=== PATIENT | female | born 1960 | race Caucasian/White ===

== ENCOUNTER 2017-08-29 09:48 | Day surgery (SDC) | payer OTHER ==
[~2017-08-29] VITALS: Ht 160 cm; Wt 82.6 kg
[~2017-08-29 09:48] MED LIST: ALBU90OI; AMLO5; ASPI81CH PO; CAND16; CLIN300 PO; CLOP75 PO; CODACE30; Hydrochloroth12.5 MG PO; LORA2 PO; LOSARTAN-HCTZ1 EAC2; NAPR500 PO; NICO14TP TOP; OXYACE5T PO; Omeprazole20 M1; PAXIL; PROACE100; TRAM50 PO; TRAZ100; [UNRECOGNIZED DRUG - OTHER]
== END 2017-08-29 12:03 | disposition home or self-care (01) ==
LOC: ORSCSDS 09:48
PROVIDERS: Internal Medicine Gastroenterology
PROC: 0DBE8ZX Excision of Large Intestine, Via Natural or Artificial Opening Endoscopic, Diagnostic (ICD-10-PCS; principal; 2017-08-29 11:00)
DX: R19.7 Diarrhea, unspecified (principal); K52.832 Lymphocytic colitis; K64.8 Other hemorrhoids; K57.30 Diverticulosis of large intestine without perforation or abscess without bleeding; R10.9 Unspecified abdominal pain; G47.33 Obstructive sleep apnea (adult) (pediatric); I10 Essential (primary) hypertension; F41.8 Other specified anxiety disorders; M79.7 Fibromyalgia; Z86.73 Personal history of transient ischemic attack (TIA), and cerebral infarction without residual deficits; F17.210 Nicotine dependence, cigarettes, uncomplicated; Z79.01 Long term (current) use of anticoagulants; Z79.82 Long term (current) use of aspirin; Z79.899 Other long term (current) drug therapy
CPT/HCPCS: 88305; J7120

== ENCOUNTER → 2018-11-20 | Outpatient (CLI) | payer OTHER ==
[~2018-11-20] MED LIST changes: +AMLO10; +Budeprion Xl300 MG
== END | disposition home or self-care (01) ==
LOC: PLD 12:56 → LAB SHORT 12:56
DX: D06.0 Carcinoma in situ of endocervix (principal)
CPT/HCPCS: 88305

== ENCOUNTER 2018-12-24 11:42 | Day surgery (SDC) | payer OTHER ==
[~2018-12-24] VITALS: Ht 160 cm; Wt 78.4 kg
== END 2018-12-24 14:40 | disposition home or self-care (01) ==
LOC: ORSCSDS 11:42
PROVIDERS: Obstetrics & Gynecology Gynecology
PROC: 0UBC7ZX Excision of Cervix, Via Natural or Artificial Opening, Diagnostic (ICD-10-PCS; principal; 2018-12-24 13:00)
DX: D06.9 Carcinoma in situ of cervix, unspecified (principal); R87.810 Cervical high risk human papillomavirus (HPV) DNA test positive; G47.33 Obstructive sleep apnea (adult) (pediatric); I10 Essential (primary) hypertension; F41.8 Other specified anxiety disorders; M79.7 Fibromyalgia; K76.0 Fatty (change of) liver, not elsewhere classified; Z86.73 Personal history of transient ischemic attack (TIA), and cerebral infarction without residual deficits; Z79.82 Long term (current) use of aspirin; Z79.899 Other long term (current) drug therapy; F17.210 Nicotine dependence, cigarettes, uncomplicated
CPT/HCPCS: 88305; J0690; J1100; J2250; J2405; J2704; J3010; J7120

== ENCOUNTER 2019-03-21 00:03 | Emergency (ER) | payer OTHER ==
[~2019-03-21] VITALS: Ht 160 cm; Wt 83.0 kg
== END 2019-03-21 01:15 | disposition home or self-care (01) ==
LOC: ER 00:03
DX: K08.89 Other specified disorders of teeth and supporting structures (principal); G89.18 Other acute postprocedural pain; I10 Essential (primary) hypertension; F17.200 Nicotine dependence, unspecified, uncomplicated; Z88.5 Allergy status to narcotic agent; Z88.8 Allergy status to other drugs, medicaments and biological substances; Z79.899 Other long term (current) drug therapy; Z79.82 Long term (current) use of aspirin; Z79.02 Long term (current) use of antithrombotics/antiplatelets
CPT/HCPCS: 64400; 96372-59; 99282-25; J1885

== ENCOUNTER → 2019-05-16 | Outpatient (CLI) | payer OTHER ==
[2019-05-20 14:06] LABS: HPV 16 Negative (Negative); HPV 18 Negative (Negative); HPV OTHER HR TYPES Positive (Negative)
== END | disposition home or self-care (01) ==
LOC: LAB SHORT 12:56 → LAB 12:56
PROVIDERS: Obstetrics & Gynecology Gynecology
DX: D06.9 Carcinoma in situ of cervix, unspecified (principal); R87.810 Cervical high risk human papillomavirus (HPV) DNA test positive
CPT/HCPCS: 87624; 88142

== ENCOUNTER → 2019-07-24 | Outpatient (CLI) | payer OTHER ==
[2019-07-24 16:41] LABS: Source, Urine Clean Catch
[2019-07-24 19:25] LABS: Bilirubin, Urine Neg (Neg); Blood, Urine Neg (Neg); Glucose Qualitative, Urine Neg (Neg); Ketones, Urine 1+ (Neg); Leukocyte Esterase, Urine 2+ (Neg); Nitrite, Urine Neg (Neg); Protein, Urine 2+ (Neg); Urobilinogen, Urine 1+ (Normal)
[2019-07-24 20:10] LABS: Appearance, Urine Clear (Clear); Color, Urine Yellow (P-Yellow)
[2019-07-24 20:14] LABS: Bacteria Few /hpf; Red Blood Cells, Urine 0-2 /hpf (0-2); Squamous Epithelial Cells Few /hpf (Few)
== END | disposition home or self-care (01) ==
LOC: LAB SHORT 16:33 → LAB 16:33
PROVIDERS: Nurse Practitioner Family
DX: N18.4 Chronic kidney disease, stage 4 (severe) (principal)
CPT/HCPCS: 81001; 87086

== ENCOUNTER → 2021-11-21 | Outpatient (CLI) | payer OTHER ==
[2021-11-25 18:34] LABS: Adenovirus F 40/41 Not Detected (NOT DETECT); Astrovirus Not Detected (NOT DETECT); Campylobacter Sp Not Detected (NOT DETECT); Cryptosporidium Not Detected (NOT DETECT); Cyclospora Cayetanensis Not Detected (NOT DETECT); E. Coli O157 Not Detected (NOT DETECT); Entamoeba Histolytica Not Detected (NOT DETECT); Enteroaggregative E. coli-EAEC Not Detected (NOT DETECT); Enteropathogenic E. coli-EPEC Not Detected (NOT DETECT); Enterotoxigenic E. coli-ETEC Not Detected (NOT DETECT); Giardia Lamblia Not Detected (NOT DETECT); Norovirus GI/GII Not Detected (NOT DETECT); Plesiomonas Shigelloides Not Detected (NOT DETECT); Rotavirus A Not Detected (NOT DETECT); Salmonella Sp Not Detected (NOT DETECT); Sapovirus Not Detected (NOT DETECT); Shiga Toxin-prod E. coli-STEC Not Detected (NOT DETECT); Shigella/Enteroin E. coli-EIEC Not Detected (NOT DETECT); Vibrio Cholerae Not Detected (NOT DETECT); Vibrio Sp Not Detected (NOT DETECT); Yersinia Enterocolitica Not Detected (NOT DETECT)
== END ==
LOC: LAB 11:30 → LAB SHORT 11:30
PROVIDERS: Physician Assistant Medical
DX: R19.7 Diarrhea, unspecified (principal)
CPT/HCPCS: 87507

== ENCOUNTER → 2021-11-24 | Outpatient (CLI) | payer OTHER ==
[~2021-11-24] MED LIST changes: +CEPHALEXIN500 M1 PO; +MECL25 PO
== END ==
LOC: LAB SHORT 09:30 → LAB 09:30
DX: R19.7 Diarrhea, unspecified (principal)
CPT/HCPCS: 83993

== ENCOUNTER → 2021-11-25 | Outpatient (CLI) | payer OTHER ==
[2021-11-26 13:13] LABS: Stool Occult Blood Guaiac 1 Neg (Neg)
== END ==
LOC: LAB SHORT 12:30 → LAB 12:30
PROVIDERS: Physician Assistant Medical
DX: R19.7 Diarrhea, unspecified (principal)
CPT/HCPCS: 82270